=== PATIENT | male | born 1975 | race Asian ===

== ENCOUNTER 2021-10-25 09:52 | Day surgery (SDC) | payer OTHER ==
[~2021-10-25] VITALS: Ht 177.8 cm; Wt 78.0 kg
[2021-10-25] MEDS ORDERED: fentaNYL citrate 0.05 MG/ML VIAL ONE (12:47)
[2021-10-25] MEDS ORDERED: LIDOCAINE 2% 100 MG/5 ML UJET TP ONE (12:48)
[2021-10-25] MEDS ORDERED: MIDAZOLAM 5 MG/5 ML VIAL ONE (12:48)
[2021-10-25] MEDS ORDERED: MIDAZOLAM 2 MG/2 ML VIAL IVP ONE (13:40)
[2021-10-25] MEDS ORDERED: fentaNYL citrate 0.05 MG/ML VIAL IVP ONE (13:40)
== END 2021-10-25 14:15 | disposition home or self-care (01) ==
LOC: MOR 09:52 → MMU 11:35 → MOR 14:15
PROVIDERS: ATTEND Internal Medicine Gastroenterology
DX: Z12.11 Encounter for screening for malignant neoplasm of colon (principal); K57.30 Diverticulosis of large intestine without perforation or abscess without bleeding; K29.70 Gastritis, unspecified, without bleeding; K29.80 Duodenitis without bleeding; Z79.899 Other long term (current) drug therapy
CPT/HCPCS: 36415; 43239; 45378; 86677; 87426; J2250; J3010